=== PATIENT | female | born 1965 | race Caucasian/White ===

== ENCOUNTER 2021-01-11 16:33 | Outpatient (CLI) | payer OTHER, SELFPAY | END 2021-01-11 16:34 | disposition home or self-care (01) | LOC: ANHCOVIDVC 16:33 | PROVIDERS: PCP Internal Medicine | DX: Z23 Encounter for immunization (principal) | CPT/HCPCS: 0001A; 91300 ==

== ENCOUNTER 2021-02-01 16:33 | Outpatient (CLI) | payer OTHER, SELFPAY | END 2021-02-01 16:34 | disposition home or self-care (01) | LOC: ANHCOVIDVC 16:33 | PROVIDERS: PCP Family Medicine | DX: Z23 Encounter for immunization (principal) | CPT/HCPCS: 0002A; 91300 ==

== ENCOUNTER → 2021-05-07 07:45 | Outpatient (REF) | payer OTHER, SELFPAY | LOC: ANHLAB 07:45 | PROVIDERS: PCP Family Medicine; Visit Provider Nurse Practitioner | DX: C44.529 Squamous cell carcinoma of skin of other part of trunk (principal) | CPT/HCPCS: 88305; 88331 ==

== ENCOUNTER 2024-02-05 11:30 | Outpatient (CLI) | payer OTHER, SELFPAY ==
[2024-02-05 11:56] LABS: Basophils Absolute Auto 0.1 K/mm3 (0.0-0.1); Basophils Percent Auto 0.8 % (0.2-1.2); Eosinophils Absolute Auto 0.2 K/mm3 (0-0.3); Eosinophils Percent Auto 2.5 % (0-4.4); Hematocrit 43.6 % (37.0-47.0); Hemoglobin 14.3 g/dL (12.0-15.0); Immature Granulocyte Absolute 0.03 K/mm3 (0.00-0.031); Immature Granulocyte Percent A 0.5 % (0-0.5); Lymphocytes Absolute Auto 1.34 K/mm3 (0.9-3.2); Mean Corpuscular HGB Conc 32.8 g/dl (32-36); Mean Corpuscular Hemoglobin 28.4 pg (26-34); Mean Corpuscular Volume 86.5 fl (80-100); Mean Platelet Volume 11.2 fl (7.4-10.4); Monocytes Absolute Auto 0.4 K/mm3 (0.1-0.6); Monocytes Percent Auto 5.9 % (2.6-8.5); Neutrophils Absolute Auto 4.4 K/mm3 (1.3-6.7); Neutrophils Percent Auto 69.3 % (45.5-73.1); Platelet Count Result 212 k/mm3 (150-375); Red Blood Count 5.04 M/mm3 (4.2-5.4); Red Cell Distribution Width 14.5 % (11.5-14.5); White Blood Count 6.4 K/mm3 (4.5-10.0)
[2024-02-05 12:10] LABS: Alanine Aminotransferase 30 U/L (6-35); Albumin Level 4.6 g/dL (3.5-5.1); Alkaline Phosphatase 85 U/L (38-126); Anion Gap 7 mmol/L (4-12); Aspartate Amino Transferase 27 U/L (14-36); Bilirubin,Total 0.6 mg/dL (0.2-1.3); Blood Urea Nitrogen 14 mg/dL (7-17); Calcium 9.5 mg/dL (8.4-10.2); Carbon Dioxide 29 mmol/L (22-30); Chloride 103 mmol/L (98-107); Cholesterol 126 mg/dL (0-200); Estimated Glomerular Filt Rate > 60; Glucose 179 mg/dL (65-110); HDL Direct 37 mg/dL; Potassium 4.4 mmol/L (3.4-5.0); Sodium 139 mmol/L (137-145); Triglycerides 208 mg/dL (<150)
[2024-02-05 12:21] LABS: LDL Cholesterol Direct 73 mg/dL
[2024-02-05 12:39] LABS: Creatinine Urine 68.4 mg/dL
[2024-02-05 12:40] LABS: Free T4 Free Thyroxine 1.25 ng/mL (0.78-2.19); Vitamin D 25 Hydroxy 55.9 ng/mL
[2024-02-05 12:54] LABS: MALB Creatinine Ratio < 8.8 mg/g (0-30); Microalbumin Urine Random < 6.0 mg/L (0-16.7)
== END 2024-02-05 11:31 | disposition home or self-care (01) ==
LOC: ANHLAB 11:32
PROVIDERS: PCP Family Medicine; Visit Provider Family Medicine
DX: E11.9 Type 2 diabetes mellitus without complications (principal); E78.5 Hyperlipidemia, unspecified; Z13.220 Encounter for screening for lipoid disorders; R79.89 Other specified abnormal findings of blood chemistry; E55.9 Vitamin D deficiency, unspecified; F32.5 Major depressive disorder, single episode, in full remission
CPT/HCPCS: 36415; 80053; 80061; 82043; 82248; 82306; 84439; 84443; 85025

== ENCOUNTER 2024-06-11 14:29 | Outpatient (CLI) | payer OTHER, SELFPAY ==
--- NOTE | ~2024-06-11 | MM_ITS ---
EXAMINATION: MM screening [facility] BI w rickey HISTORY: Screening TECHNIQUE: Craniocaudal and mediolateral oblique 3-D tomosynthesis images were obtained and synthetic 2-D images were generated. CAD analysis was submitted and interpreted. COMPARISON: Comparison to multiple prior studies sequentially, with oldest reviewed study dated 02/02. BREAST PARENCHYMAL COMPOSITION: Not Dense: The breasts are almost entirely fatty. 1 FINDINGS: There is no evidence of suspicious mass, calcification, or architectural distortion to sugg est malignancy in either breast. There has been no suspicious interval change. IMPRESSION: 1. No mammographic evidence of malignancy. 2. Recommend routine screening mammography in one year. BI-RADS Category 1: Negative Reviewed, dictated and finalized at location B.
== END 2024-06-11 14:30 | disposition home or self-care (01) ==
LOC: ANHIMG 14:31
PROVIDERS: PCP Family Medicine; Visit Provider Family Medicine
DX: Z12.31 Encounter for screening mammogram for malignant neoplasm of breast (principal)
CPT/HCPCS: 77063; 77067

== ENCOUNTER 2024-06-15 00:39 | Day surgery (SDC) | payer OTHER, SELFPAY ==
[2024-06-03 12:53] VITALS: BMI 31.1
--- NOTE | 2024-06-15 07:04 | WPDANESEPPF ---
Anes - Initial Pre Proc Eval Procedure: Operation Date: 06/15/24 09:30 Proposed Procedures p Colonoscopy - Valerio Billingsley MD Date/Time: 06/15/24 07:04 Surgeon: Valerio Billingsley MD Pre Op Diagnosis: Personal history colon polyps Patient Data Age: 59 Gender: F Height: 1.66 m Weight: 86.2 kg Allergies Allergy/AdvReac Type Severity Reaction Status Date / Time No Known Allergies Allergy Verified 06/15/24 07:53 Home Medications Medication Instructions Recorded Confirmed Type blood sugar diagnostic #10 ea 10/27/19 06/15/24 History pen needle, diabetic 32 gauge x #50 ea 10/27/19 06/15/24 History 1/4 (Novofine 32) lancets (OneTouch UltraSoft #200 ea 07/21/20 06/15/24 Rx Lancets) cholecalciferol (vitamin D3) 50 50 mcg PO DAILY #90 caps 01/24/22 06/15/24 Rx mcg (2,000 unit) capsule blood sugar diagnostic (OneTouch See Rx Instructions .Route 05/02/22 06/15/24 Rx Ultra Test strips) .COMPLEX #100 ea atorvastatin 40 mg tablet See Rx Instructions .Route 07/16/23 06/15/24 Rx .COMPLEX #90 tabs liraglutide 0.6 mg/0.1 mL (18 mg/3 1.2 mg (0.2 mL) subcut DAILY #9 mL 05/12/24 06/15/24 Rx mL) subcutaneous pen injector (Victoza 2-Milton) empagliflozin 12.5 mg-metformin 1 tablet PO BID #180 tabs 05/17/24 06/15/24 Rx 1,000 mg tablet (Synjardy) sertraline 50 mg tablet 50 mg PO DAILY #90 tabs 05/26/24 06/15/24 Rx Multivitamin Women 50 Plus 1 tab-cap PO DAILY 06/03/24 06/15/24 History Patient hx anesthesia problems: none Family hx anesthesia problems: none Results Review: All pre-operative results and documents have been reviewed as part of the pre-operative evaluation. [facility] Past Medical History Medical History (Updated 06/15/24 @ 07:05 by Linus Zimmerman DO) Cervical stenosis of spinal canal Colon polyps Degenerative, intervertebral disc, cervical Diabetes type 2, controlled MDD (major depressive disorder) Screening mammogram, encounter for Surgical History Surgical History History of lumpectomy Hx of colonoscopy Family History Family History Father Family history of malignant neoplasm Carcinoma of colon Mother Family history of atrial fibrillation Tobacco abuse Diabetes mellitus Son Diabetes mellitus Social History Social History Smoking status: Never smoker Second hand tobacco smoke exposure: Yes Alcohol intake: current Substance use: never Substance use type: does not use Do You Feel Safe in your Home?: Yes Lack of Transportation: No Lack of Food: Never True Current Housing: I Have Housing Concerned About Future Housing: No Difficulty Paying Gas/Electric Bills: No Difficulty Paying for Meds: No Currently Unemployed: No Education: Trade/Vocational Certificate Difficulty w/ Childcare or Family Care: No Living arrangements: with family Occupation/Education: occupation 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 Gender identity (if verbalized by the patient): Female Spiritual care concerns: No Anes - Eval Final PreProcedure Day of Procedure 06/15/24 07:04 Patient weight: overweight Heart: regular rate and rhythm Lungs: clear to auscultation Airway: Mallampati scale class II Neurological: alert and oriented Last oral intake: >/= 8 hours ASA classification: III Emergent: no Anesthetic plan: proceed Anesthesia type and monitoring: general GIVS and standard monitoring Results Review: All pre-operative results and documents have been reviewed as part of the pre-operative evaluation. Informed Consent: The patient's anesthetic plan and its attendant risks and benefits were discussed with the patient/family/POA. Questions were solicited and answers provided to the satisfaction of the patien
[2024-06-15 07:46] VITALS: BP 139/84; PULSE 85; RESP 16; TEMP 36.6; O2SAT 96; BMI 29.9
[2024-06-15 08:01] LABS: Glucose Point of Care 154 mg/dl (65-105)
[2024-06-15] MEDS: LACTATED RINGERS 1,000 ML 150 ML IV CONT (08:01)
--- NOTE | 2024-06-15 08:42 | PM.HPGS ---
History of Present Illness History of Present Illness Consent: Risks, benefits, and alternatives have been discussed and questions answered. Patient agrees to proceed with procedure. Chief complaint: Personal history colon polyps Narrative: Elisa Piper is a 59 year old female with last colonoscopy 5 years ago, father had colon cancer. Review of Systems Review of Systems: All systems reviewed & are unremarkable except as noted in HPI and below PMFSH Past Medical History Medical History (Updated 06/15/24 @ 08:42 by Valerio Billingsley MD) Cervical stenosis of spinal canal Colon polyps Degenerative, intervertebral disc, cervical Diabetes type 2, controlled Family history of colon cancer in father MDD (major depressive disorder) Screening mammogram, encounter for Surgical History Surgical History History of lumpectomy Hx of colonoscopy Family History Family History Father Family history of malignant neoplasm Carcinoma of colon Mother Family history of atrial fibrillation Tobacco abuse Diabetes mellitus Son Diabetes mellitus Social History Social History Smoking status: Never smoker Second hand tobacco smoke exposure: Yes Alcohol intake: current Substance use: never Substance use type: does not use Do You Feel Safe in your Home?: Yes Lack of Transportation: No Lack of Food: Never True Current Housing: I Have Housing Concerned About Future Housing: No Difficulty Paying Gas/Electric Bills: No Difficulty Paying for Meds: No Currently Unemployed: No Education: Trade/Vocational Certificate Difficulty w/ Childcare or Family Care: No Living arrangements: with family Occupation/Education: occupation 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 Gender identity (if verbalized by the patient): Female Spiritual care concerns: No Meds Home Medications and Allergies Home Medications Medication Instructions Recorded Confirmed Type blood sugar diagnostic #10 ea 10/27/19 06/15/24 History pen needle, diabetic 32 gauge x #50 ea 10/27/19 06/15/24 History 1/4 (Novofine 32) lancets (OneTouch UltraSoft #200 ea 07/21/20 06/15/24 Rx Lancets) cholecalciferol (vitamin D3) 50 50 mcg PO DAILY #90 caps 01/24/22 06/15/24 Rx mcg (2,000 unit) capsule blood sugar diagnostic (OneTouch See Rx Instructions .Route 05/02/22 06/15/24 Rx Ultra Test strips) .COMPLEX #100 ea atorvastatin 40 mg tablet See Rx Instructions .Route 07/16/23 06/15/24 Rx .COMPLEX #90 tabs liraglutide 0.6 mg/0.1 mL (18 mg/3 1.2 mg (0.2 mL) subcut DAILY #9 mL 05/12/24 06/15/24 Rx mL) subcutaneous pen injector (Genoomtoza 2-Milton) empagliflozin 12.5 mg-metformin 1 tablet PO BID #180 tabs 05/17/24 06/15/24 Rx 1,000 mg tablet (Synjardy) sertraline 50 mg tablet 50 mg PO DAILY #90 tabs 05/26/24 06/15/24 Rx Multivitamin Women 50 Plus 1 tab-cap PO DAILY 06/03/24 06/15/24 History Allergies Allergy/AdvReac Type Severity Reaction Status Date / Time No Known Allergies Allergy Verified 06/15/24 07:53 Vital Signs Vital Signs - 24 hr 06/15/24 07:46 Temperature 97.8 F Pulse Rate 85 Respiratory Rate 16 Blood Pressure 139/84 Pulse Oximetry 96 Oxygen Delivery Room Air Exam Const: General: comfortable and no acute distress HENMT: Face/Nose/Sinus: Normal nares present Eyes: General: appearance normal, both eyes and all related structures Neck: Neck: no JVD Resp: Auscultation: clear to auscultation bilaterally Cardio: Rate: regular rate Rhythm: regular rhythm GI: Inspection: non-distended GI Palp: Yes Soft to palpation Skin: General skin exam: normal color Neuro: General: gait normal Speech: normal speech Extrem: General: normal to inspection Psych: Men
[2024-06-15 08:57] VITALS: BP 99/67; PULSE 75; RESP 15; O2SAT 96
[2024-06-15 09:07] VITALS: BP 102/73; PULSE 72; RESP 15; O2SAT 98
[2024-06-15 09:17] VITALS: BP 115/73; PULSE 76; RESP 33; O2SAT 100
== END 2024-06-15 09:25 | disposition home or self-care (01) ==
PROVIDERS: PCP Family Medicine; Referring Provider Family Medicine; Visit Provider Internal Medicine Gastroenterology
PROC: 0DJD8ZZ Inspection of Lower Intestinal Tract, Via Natural or Artificial Opening Endoscopic (ICD-10-PCS; CPT 45378; principal; 2024-06-15 09:30)
DX: Z12.11 Encounter for screening for malignant neoplasm of colon (principal); K64.8 Other hemorrhoids; E11.9 Type 2 diabetes mellitus without complications; M48.02 Spinal stenosis, cervical region; M50.30 Other cervical disc degeneration, unspecified cervical region; F32.9 Major depressive disorder, single episode, unspecified; Z79.85 Long-term (current) use of injectable non-insulin antidiabetic drugs; Z98.890 Other specified postprocedural states; Z86.010 Personal history of colon polyps; Z80.0 Family history of malignant neoplasm of digestive organs; Z82.49 Family history of ischemic heart disease and other diseases of the circulatory system
CPT/HCPCS: 45378; 82948; J2704; J7120

== ENCOUNTER 2024-07-01 13:15 | Outpatient (CLI) | payer OTHER, SELFPAY ==
--- NOTE | ~2024-07-01 | DEXA_ITS ---
Bone Density Report Name: LAYNE DEL ROSARIO Age: 59 Sex: Female Ethnicity: White Date of : 1965 Indication: postmenopausal; screening for osteoporosis; parental hip fracture; cancer; Referring Provider: ZEE SOOD Study: Bone densitometry was performed. Exam Date: July 01, 2024 Accession number: [id number] Bone Density: Region BMD T-score Z-score Classification AP Spine(L1, L2, L3) 1.020 0.0 1.5 Normal Femoral Neck (Left) 0.629 -2.0 -0.6 Osteopenia Total Hip (Left) 0.759 -1.5 -0.5 Osteopenia Femoral Neck (Right) 0.695 -1.4 0.0 Osteopenia Total Hip (Right) 0.797 -1.2 -0.2 Osteopenia Femoral Neck Mean 0.662 -1.7 -0.3 Osteopenia Total Hip Mean 0.778 -1.3 -0.3 Osteopenia World Health Organization criteria for BMD impression classify patients as: Normal (T-score at or above -1.0), Osteopenia (T-score between -1.0 and -2.5), or Osteoporosis (T-score at or below -2.5). 10-year Fracture Risk(1): Major Osteoporotic Fracture 18% Hip Fracture 1.1% Reported Risk Factors: [place] (), Neck BMD=0.629, BMI=32.1, parental fracture (1) FRAX(R) Version 3.08. Fracture probability calculated for an untreated patient. Fracture probability may be lower if the patient has received treatment. Clinical Information Provided by Patient: Parent has had a hip fracture Has used the following medications: Vitamin D, multivitamins Has the following medical conditions: Cancer Patient maximum height was 65 Menopause Age: 50 No regular weight bearing exercise Drinks caffeinated beverages Onset of menses at age 11 Number of children 0 Impression: The patient has low bone mass, based on the Left Femoral Neck T-score. The patient has risk factors, including: parental hip fracture. Discussion: BONE DENSITY IS LOW AT ONE OR MORE SKELETAL SITES. This patient's lowest T-score is low at one or more skeletal sites. It meets the World Health Organization's (WHO) criteria for ?low bone mass? (T-score between -1.0 and -2.5). The patient's 10-year risk of fracture as calculated by FRAX is less than the threshold where pharmacological therapy is recommended by the National Osteoporosis Foundation (NOF). However, all treatment decisions require clinical judgment and consideration of individual patient factors, including patient preferences, comorbidities, previous drug use, risk factors not captured in the FRAX model (e.g., frailty, falls, vitamin D deficiency, increased bone turnover, interval significant decline in bone density) and possible under or overestimation of fracture risk by FRAX. The patient should follow a healthful lifestyle (good nutrition with adequate calcium and vitamin D, and appropriate weight-bearing exercise). Follow-Up: Consider repeating this study in 2 to 3 years to
== END 2024-07-01 13:16 | disposition home or self-care (01) ==
PROVIDERS: PCP Family Medicine; Visit Provider Physician Assistant Medical
DX: Z78.0 Asymptomatic menopausal state (principal); M85.89 Other specified disorders of bone density and structure, multiple sites
CPT/HCPCS: 77080